=== PATIENT | female | born 1960 | race Caucasian/White ===

== ENCOUNTER 2017-04-12 08:03 | Day surgery (SDC) | payer MEDICARE ==
--- NOTE | ~2017-04-12 | EGD ---
EGD REPORT [facility] [address] [id number] NAME: MULUGETA SELBY : 60 STATUS : [place] [facility] [place] PAT#: [id number] AGE: 57 ADM/REG DATE : 04/12/17 MR#: [id number] REPORT SERV DATE: 04/12/17 DICTATED BY: BRAD BOO. DATE: 04/12/17 REPORT STATUS : Draft TRANSCRIBED BY: [facility] DATE: 04/12/17 [facility] Patient Name: Mulugeta Selby Date of : 1960 Attending MD: BRAD BOO MD Procedure Date No Time: 04/12/2017 Procedure: Colonoscopy Indications: High risk colon cancer surveillance: Personal history of non-advanced adenoma, High risk colon cancer surveillance: Crohn's disease large intestine; Humira 40mg qwk; Lialda 4.8g daily. Patient Profile: Informed consent was obtained from the patient by me prior to the procedure. Risks, benefits, and alternatives were discussed including the risk of bleeding, perforation, infection, reaction to medicine, missed lesion, and cardiopulmonary complications. Referring MD: Yony Mcintosh MD Medicines: Monitored Anesthesia Care Complications: No immediate complications. Procedure: Pre-Anesthesia Assessment: - ASA Grade Assessment: III - A patient with severe systemic disease. After I obtained informed consent, the scope was passed under direct vision. Throughout the procedure, the patient's blood pressure, pulse, and oxygen saturations were monitored continuously. The PCF [id number] was introduced through the anus and advanced to the cecum, identified by appendiceal orifice and ileocecal valve. The colonoscope was slowly withdrawn with careful examination all mucosal surfaces including specific attention around flexures and tip deflection behind folds; retroflexion performed in rectum. The colonoscopy was performed without difficulty. The patient tolerated the procedure well. The quality of the bowel preparation was adequate. The ileocecal valve, appendiceal orifice and rectum were photographed. Findings: The terminal ileum appeared normal. A sessile polyp was found in the cecum without surrounding gross colitis. The polyp was 7 mm in size. The polyp was removed with a cold snare and cold forceps completely. Resection and retrieval were complete. Jar #1. The sigmoid colon, transverse colon, ascending colon and cecum appeared normal. Biopsies were taken with a cold forceps for histology. Four EGD REPORT [address] [address] NAME: MULUGETA SELBY : 60 STATUS : REG [facility]#: [id number] AGE: 57 ADM/REG DATE : 04/12/17 MR#: [id number] REPORT SERV DATE: 04/12/17 DICTATED BY: BRAD BOO DATE: 04/12/17 REPORT STATUS : Draft TRANSCRIBED BY: [employer] DATE: 04/12/17 biopsies were taken every 10 cm with a cold forceps from the cecum, ascending colon, transverse colon and sigmoid colon for Crohn's surveillance. These biopsy specimens from the cecum, ascending colon, transverse colon and sigmoid colon were sent to Pathology. A diffuse area of mildly erythematous and nodular mucosa was found in the descending colon. Biopsies were taken with a cold forceps for histology q10cm 4 quadrants. A patchy area of moderately congested, erythematous and ulcerated mucosa was found in the rectum. Biopsies were taken with a cold forceps for histology. A flat polyp was found in the ascending colon. The polyp was 5 mm in size. The polyp was removed with a cold biopsy forceps. Resection and retrieval were complete. Jar #4. Impression: - The examined portion of the ileum was normal. - One 7 mm polyp in the cecum. Resected and retrieved. - The sigmoid colon, transverse colon, ascending colon and cecum are normal. Biopsied. - Erythematous and nodular mucosa in the descending colon. Biopsied. - Congested, erythematous and ulcerated mucosa in the rectum. Biopsied. - One 5 mm polyp in the ascending colon. Resected and retrieved. Recommendation: - Patient has a contact number available for emergencies. The signs and symptoms of potential delayed complications were discussed with the patient. Return to normal activities tomorrow. Written discharge instructions were provided to the patient. - Regular diet. - Continue present medications. - Await pathology results. - Repeat colonoscopy for surveillance based on pathology results. - Euceris 2 months. - F/u cdif toxin PCR. - Consider check Humira level. Procedure Code(s): --- Professional --- 49885, Colonoscopy, flexible, proximal to splenic flexure; with removal of tumor(s), polyp(s), or other lesion(s) by snare technique 47247, 59, Colonoscopy, flexible, proximal to splenic flexure; with biopsy, single or multiple Diagnosis Code(s): --- Professional --- EGD REPORT [address] [address] NAME: MULUGETA SELBY : 60 STATUS : [facility] [place] PAT#: [id number] AGE: 57 ADM/REG DATE : 04/12/17 MR#: [id number] REPORT SERV DATE: 04/12/17 DICTATED BY: BRAD BOO DATE: 04/12/17 REPORT STATUS : Draft TRANSCRIBED BY: [employer] DATE: 04/12/17 K50.10, Crohn's disease of large intestine without complications D12.2, Benign neoplasm of ascending colon D12.0, Benign neoplasm of cecum K63.89, Other specified diseases of intestine K62.89, Other specified diseases of anus and rectum K62.6, Ulcer of anus and rectum Z86.010, Personal history of colonic polyps CPT copyright 2013 [employer]. All rights reserved. The codes documented in this report are preliminary and upon coroner transport technician review may be revised to meet current compliance requirements. BRAD BOO MD 04/12/2017 11:08 AM This report has been signed electronically. Number of Addenda: 0 Note Initiated On: 04/12/2017 10:22 AM Scope Withdrawal Time 0 hours 17 minutes 37 seconds [id number] [id number]
[~2017-04-12 08:03] MED LIST: ADDERALL15 MG PO; ADDERALL30 MG PO; ANASPAZ0.125 MG SL; ARMOUR THYRO15 MG PO; BEN25 PO; BENTYL10 PO; CALMOSEPTINE O2.5 OZ T; CALMOSEPTINE O2.5 OZ TOP; CALTRA600D PO; CENTRUM TAB1 TAB PO; CO Q-10100 MG PO; COLON HEALTH PO; CYMBALTA60 PO; CYTO5 PO; DCN100 PO; DENAVIR1 % EX; DENAVIR1 % TOP; ELMIRON 100 MG100 MG PO; ELMIRON100 MG OR; ELMIRON100 MG PO; ENABLEX7.5 PO; FLEX PO; FLONASE NAS; FLORASTOR250 MG PO; FLUCON150 PO; HUMIRA; HUMIRA PEN SC; IMITREX100 MG PO; INDE60 PO; INDE80 PO; LEVOTHROID25 MCG PO; LEVOTHYROXIN25 MCG PO; LIALDA1.2 GM PO; LOM PO; LOP25 PO; MAXIMUM D3 PO; MCZ125 PO; METROCREAM0.75 % TOP; METROGEL TOP; MOBIC7.5 PO; MULTIVIT/MIN PO; MULTIVITAMI1 PO; NEUR300 PO; NEUR400 PO; NEUR800 PO; NORCO1 TA2 PO; NORCO1 TAB PO; P20 PO; P5 PO; PR12.5 PO; PR25 PO; PRILO PO; PROBIOTIC; PROZAC PO; REQUIP1 PO; SYN.025B PO; T PO; TRIDERM0.1 % TOP; UCERIS; VANC125UDL PO; VANCOCIN HCL250 MG PO; VITAMIN D31000 UNIT PO; VITE PO; WELCHOL 625 MG625 MG PO; WELLBUTRIN200 MG PO; XANAX1 MG PO; ZANTAC150 MG PO; ZOCOR20 PO; ZOFRAN4 PO; [UNRECOGNIZED DRUG - CODE] PO; [UNRECOGNIZED DRUG - OTHER] OR; [UNRECOGNIZED DRUG - OTHER] PO
[2017-04-12 08:35] LABS: BASOPHILS 0.9 %; BASOPHILS ABSOLUTE 0.06 10/3/uL (0.0-0.16); EOSINOPHILS 0.9 %; EOSINOPHILS ABSOLUTE 0.06 10/3/uL (0.0-0.53); HEMATOCRIT 43.5 % (36.0-48.0); HEMOGLOBIN 14.6 g/dL (12.0-16.0); IMMATURE GRANULOCYTES 0.1 %; IMMATURE GRANULOCYTES ABSOLUTE 0.01 10/3/uL (0.0-0.11); LYMPHOCYTES 55.3 %; LYMPHOCYTES ABSOLUTE 3.88 10/3/uL (0.67-4.30); MEAN CORPUS HGB CONC 33.6 g/dL (32.0-36.0); MEAN CORPUSCULAR HEMOGLOB 29.3 pg (26.0-34.0); MEAN CORPUSCULAR VOLUME 87.2 fL (80-100); MEAN PLATELET VOLUME 10.1 fL (9.2-13.0); MONOCYTES 6.1 %; MONOCYTES ABSOLUTE 0.43 10/3/uL (0.21-1.20); NEUTROPHILS 36.7 %; NEUTROPHILS ABSOLUTE 2.58 10/3/uL (2.02-8.40); PLATELET COUNT 264 10/3/uL (150-400); RBC DISTRIBUTION WIDTH 13.3 % (12.0-16.0); RED CELL COUNT 4.99 10/6/uL (4.0-5.6)
[2017-04-12 08:36] LABS: MANUAL DIFF NO %
[2017-04-12 08:50] LABS: ALKALINE PHOSPHATASE 92 U/L (45-117); CALCIUM, SERUM 10.1 MG/DL (8.5-10.4); CHLORIDE, SERUM 104 MMOL/L (96-112); GFR AFRICAN AMERICAN 82 ML/MIN (>=60); GFR NON AFRICAN AMERICAN 71 ML/MIN (>=60); GLOBULIN 3.9 G/DL (2.5-4.1); POTASSIUM, SERUM 4.4 MMOL/L (3.5-5.3); SGOT(AST) 21 U/L (5-40); SGPT(ALT) 19 U/L (5-65); SODIUM, SERUM 141 MMOL/L (135-148); TOTAL BILIRUBIN 0.4 MG/DL (0-1.2); TOTAL PROTEIN 7.9 G/DL (6.0-8.5)
[2017-04-12 08:51] LABS: BUN (BLOOD UREA NITROGEN) 10 MG/DL (6-23); CO2 (CARBON DIOXIDE) 33 MMOL/L (24-34); GLUCOSE, SERUM 88 MG/DL (60-99)
== END 2017-04-12 23:59 | disposition home or self-care (01) ==
LOC: DMU 08:03
PROVIDERS: Internal Medicine Gastroenterology
PROC: 0DBP8ZX Excision of Rectum, Via Natural or Artificial Opening Endoscopic, Diagnostic (ICD-10-PCS; 2017-04-12)
PROC: 0DBK8ZX Excision of Ascending Colon, Via Natural or Artificial Opening Endoscopic, Diagnostic (ICD-10-PCS; 2017-04-12)
PROC: 0DBL8ZX Excision of Transverse Colon, Via Natural or Artificial Opening Endoscopic, Diagnostic (ICD-10-PCS; 2017-04-12)
PROC: 0DBH8ZZ Excision of Cecum, Via Natural or Artificial Opening Endoscopic (ICD-10-PCS; principal; 2017-04-12 10:00)
PROC: 0DBN8ZX Excision of Sigmoid Colon, Via Natural or Artificial Opening Endoscopic, Diagnostic (ICD-10-PCS; 2017-04-12 10:00)
DX: Z12.11 Encounter for screening for malignant neoplasm of colon (principal); D12.0 Benign neoplasm of cecum; D12.2 Benign neoplasm of ascending colon; K50.10 Crohn's disease of large intestine without complications; K63.89 Other specified diseases of intestine; K62.89 Other specified diseases of anus and rectum; K62.6 Ulcer of anus and rectum; K50.90 Crohn's disease, unspecified, without complications; Z86.010 Personal history of colon polyps; I10 Essential (primary) hypertension; G47.33 Obstructive sleep apnea (adult) (pediatric); E03.9 Hypothyroidism, unspecified; R25.1 Tremor, unspecified; E78.5 Hyperlipidemia, unspecified; G43.909 Migraine, unspecified, not intractable, without status migrainosus; M19.90 Unspecified osteoarthritis, unspecified site; M79.7 Fibromyalgia; Z96.652 Presence of left artificial knee joint; Z98.1 Arthrodesis status; Z90.710 Acquired absence of both cervix and uterus; Z98.890 Other specified postprocedural states; Z79.899 Other long term (current) drug therapy
CPT/HCPCS: 80053; 85025; 87493; 87493-59; 88305